=== PATIENT | female | born 1990 | race Caucasian/White ===

== ENCOUNTER → 2022-03-27 06:59 | Outpatient (CLI) | payer BC, SELFPAY ==
[2022-03-26 18:17] LABS: Basophils # 0.1 K/mm3 (0-0.2); Basophils % 0.7 % (0.1-2.0); Eosinophils # 0.2 K/mm3 (0.0-0.4); Eosinophils % 2.7 % (0.1-12.0); Hematocrit 43.6 % (37.0-47.0); Hemoglobin 14.7 g/dL (12.2-16.2); Lymphocytes # 1.8 K/mm3 (0.7-4.5); Lymphocytes % 28.2 % (10-50); Mean Corpuscular HGB Conc 33.8 g/dL (31.8-35.4); Mean Corpuscular Hemoglobin 30.5 pg (27.0-31.2); Mean Corpuscular Volume 90.3 fl (81-99); Mean Platelet Volume 11.3 fl (7.4-10.4); Monocytes # 0.4 K/mm3 (0.1-1.0); Monocytes % 5.9 % (1.7-9.3); Neutrophils # 3.9 K/mm3 (1.8-7.8); Neutrophils % 62.6 % (37.0-80.0); Platelet Count 241 K/mm3 (142-424); Red Blood Count 4.83 M/mm3 (4.20-5.40); Red Cell Distribution Width 13.1 % (11.5-17.5); White Blood Count 6.3 K/mm3 (4.8-10.8)
[2022-03-26 18:25] LABS: Alanine Aminotransferase 16 U/L (12-78); Albumin Level 4.7 g/dl (3.5-5.0); Albumin/Globulin Ratio 1.6 (1.1-1.8); Alkaline Phosphatase 68 U/L (38-126); Anion Gap 12.8 mEq/L (5-15); Aspartate Amino Transferase 23 U/L (14-36); Bilirubin,Total 0.4 mg/dl (0.2-1.3); Blood Urea Nitrogen 12 mg/dl (7-17); Calcium 9.8 mg/dl (8.4-10.2); Carbon Dioxide 29 mmol/L (22.0-30.0); Chloride 101 mmol/L (98-107); Estimated Glomerular Filt Rate 84 ml/min (>60); GFR (African American) 101 ML/MIN (>60); Glucose 91 mg/dl (74-100); Potassium 4.8 mmoL/L (3.5-5.1); Sodium 138 mmol/L (136-145); Total Protein,Serum 7.7 g/dl (6.3-8.2)
[2022-03-26 18:38] LABS: 25-OH Vitamin D, Total 40.2 ng/mL (30-100)
[2022-03-26 18:54] LABS: Thyroid Stimulating Hormone 1.65 uIU/mL (0.465-4.68)
[2022-03-26 19:13] LABS: Vitamin B12 401 pg/mL (239-931)
== END ==
PROVIDERS: PCP Nurse Practitioner; Visit Provider Nurse Practitioner
DX: F41.9 Anxiety disorder, unspecified (principal)
CPT/HCPCS: 80053; 82306; 82607; 84443; 85025

== ENCOUNTER → 2022-09-25 12:00 | Outpatient (CLI) | payer BC, SELFPAY ==
[2022-09-25 14:14] LABS: Influenza A, PCR Not Detected (NotDetected); Influenza B, PCR Not Detected (NotDetected)
[2022-09-25 14:52] LABS: Coronavirus 19, PCR Detected (NotDetected)
[2022-09-25 14:58] LABS: Chloride 100 mmol/L (98-107); Potassium 4.1 mmoL/L (3.5-5.1); Sodium 136 mmol/L (136-145)
[2022-09-25 15:01] LABS: Anion Gap 14.1 mEq/L (5-15); Blood Urea Nitrogen 11 mg/dl (7-17); Carbon Dioxide 26 mmol/L (22.0-30.0); Estimated Glomerular Filt Rate 84 ml/min (>60); GFR (African American) 101 ML/MIN (>60); Glucose 84 mg/dl (74-100)
== END ==
PROVIDERS: PCP Nurse Practitioner; Visit Provider Nurse Practitioner
DX: U07.1 COVID-19 (principal); J06.9 Acute upper respiratory infection, unspecified; R05.9 Cough, unspecified
CPT/HCPCS: 36415; 80048; C9803; U0003; U0005

== ENCOUNTER 2025-03-10 13:00 | Outpatient (CLI) | payer BC, SELFPAY ==
[2025-03-10 18:51] LABS: Basophils # 0.1 K/mm3 (0-0.2); Basophils % 0.9 % (0.1-2.0); Eosinophils # 0.2 Kmm3 (0.0-0.4); Eosinophils % 2.7 % (0.1-12.0); Hematocrit 45.2 % (37.0-47.0); Hemoglobin 14.9 g/dL (12.2-16.2); Immature Granulocytes # 0.01 10^3uL; Immature Granulocytes % 0.2 %; Lymphocytes # 1.6 K/mm3 (0.7-4.5); Mean Corpuscular Hemoglobin 30.1 pg (27.0-31.2); Mean Corpuscular Volume 91.3 fl (81-99); Mean Platelet Volume 12.8 fl (7.4-10.4); Monocytes # 0.5 K/mm3 (0.1-1.0); Neutrophils # 3.3 K/mm3 (1.8-7.8); Neutrophils % 59.2 % (37.0-80.0); Nucleated Red Blood Cells # 0 10^3/uL; Nucleated Red Blood Cells % 0 %; Platelet Count 238 K/mm3 (142-424); Red Blood Count 4.95 M/mm3 (4.20-5.40); Red Cell Distribution Width 13.2 % (11.5-17.5); Red Cell Distribution Width-SD 43.8 fL; White Blood Count 5.6 K/mm3 (4.8-10.8)
[2025-03-10 19:18] LABS: Alanine Aminotransferase 15 U/L (12-78); Albumin/Globulin Ratio 1.9 (1.1-1.8); Alkaline Phosphatase 60 U/L (38-126); Anion Gap 14.4 mEq/L (5-15); Aspartate Amino Transferase 22 U/L (14-36); Bilirubin,Total 0.9 mg/dl (0.2-1.3); Blood Urea Nitrogen 13 mg/dl (7-17); Carbon Dioxide 30 mmol/L (22.0-30.0); Chloride 99 mmol/L (98-107); Estimated Glomerular Filt Rate 72 ml/min (>60); GFR (African American) 87 ML/MIN (>60); Globulin 2.7 g/dL (1.3-3.2); Glucose 91 mg/dl (74-100); Potassium 4.4 mmoL/L (3.5-5.1); Sodium 139 mmol/L (136-145); Total Protein,Serum 7.7 g/dl (6.3-8.2)
[2025-03-10 19:28] LABS: Free Thyroxine Index 3.1 ug/dL (5.93-13.13); T4 (Thyroxine) 8.3 ug/dl (5.53-11.0); Triiodothryronine (T3) Uptake 37 % (23.5-40.5)
[2025-03-10 19:42] LABS: Thyroid Stimulating Hormone 1.91 uIU/mL (0.465-4.68)
[2025-03-10 19:56] LABS: Hemoglobin A1C 5.9 % (4.0-6.0)
--- OUTSIDE RECORDS SUMMARY | 2025-03-11 12:29 | XMS_ITS | Referral Summary ---
Author Organization [facility] Address [address] [place] [address] [place] [address] Care Team Providers Care Banquet Steward Name Role Phone Elena Livingston NP Primary Care Provider [phone] Social History Tobacco Use Types Packs/Day Years Used Date Smoking Tobacco: Never Assessed Comments Unknown Sex and Gender Information Value Date Recorded Sex Assigned at Not on file Legal Sex Female 2:04 PM EST Gender Identity Not on file Sexual Orientation Not on file Plan of Treatment Not on file Insurance [employer] BLUE CROSS ALL OTHERS NOT MEDICARE Care Teams Banquet Steward Relationship Specialty Start Date End Date Elena Livingston NP [address] [place] [address] PCP - General 10/22/24
--- OUTSIDE RECORDS SUMMARY | 2025-03-11 12:29 | XMS_ITS | Clinical Summary ---
Author Organization [facility] Address [place] [address] Phone Care Team Providers Care [place] Attorney Name Role Phone Unavailable Primary Care Provider Unavailabl e Allergies No known active allergies Medications predniSONE (DELTASONE) 20 mg Oral TabletIndicatio ns:Rhus dermatitis 3 tablets daily for 3 days, 2 tablets daily for 3 days, 1 tablet daily for 3 days and then 1/2 tablet daily for 3 days. 20 Tablet 05/11/2024 Active Active Problems Problem Noted Date Diagnosed Date At high risk for breast cancer 04/17/2024 Overview (04/17/2024): Ms. Mckeon has been calculated to have a 22% lifetime risk to develop breast cancer based on self-reported personal and family history (Tyrer Cuzick risk model). Women with a risk assessment 20%+ meet NCCN criteria for increased breast cancer screening. She was encouraged to establish care in a high risk setting such as [facility]. A referral has been placed. A consultation can be arranged by calling [phone]. Pre-op evaluation 10/06/2020 Neck mass 09/29/2020 Overview (09/29/2020): Added automatically from request for surgery [id number] Leg lesion 09/29/2020 Overview (09/29/2020): Added automatically from request for surgery [id number] Immunizations Immunization Administration Dates Next Due DTaP 02/28/2018 MMR 04/28/2016 Tdap 02/21/2018,04/05/2016 Surgical History Surgery Date Site/Laterality Comments APPENDECTOMY TONSILLECTOMY DILATION AND CURETTAGE OF UTERUS 01/10/2015 N/A DILATION & CURETTAGE SUCTION EVACUATION FOR MISCARRIAGE; Surgeon: Mary Loya MD; Location: ED MAIN OR; Service: Gynecology DENTAL SURGERY wisdom teeth extraction LASIK Bilateral SOFT TISSUE BIOPSY 10/06/2020 N/A .; Surgeon: Char Hampton MD; Location: ED MAIN OR; Service: General Medical History Medical History Date Comments Urinary tract infection Post-operative nausea and vomiting Motion sickness Family History Medical History Relation Name Comments Arthritis Father Cancer Maternal Aunt Early Maternal Grandfather car acc ident Arthritis Maternal Grandmother Cancer Mother breast, skin & colon Mental Illness Paternal Grandfather Cataracts Paternal Grandmother Vision Loss Paternal Grandmother Asthma Sister Relation Name Status Comments Father Alive Maternal Aunt Maternal Grandfather Maternal Grandmother Alive Mother Alive Paternal Grandfather Paternal Grandmother Alive Sister Alive Social History Tobacco Use Types Packs/Day Years Used Date Smoking Tobacco: Never Smokeless Tobacco: Never Tobacco Cessation:Counseling Given: Not Answered Alcohol Use Standard Drinks/Week Comments Yes 0 (1 standard drink = 0.6 oz pur e alcohol) Sexually Active Control Partners Comments Yes Other-see comments Male - vasectomy Comments No Sex and Gender Information Value Date Recorded Sex Assigned at Not on file Legal Sex Female 10:54 PM EDT Gender Identity Not on file Sexual Orientation Not on file Obstetrics History Para Term AB IAB SAB Ectopic Multiple Livin g Live Births 3 2 2 1 0 2 2 Date Outcome GA Total Labor Labor/2nd/3rd Weight Sex Type Anes PTL Narda A1 A5 Name Clin 2014 AB 8w0 d 2015 Term 40w 4d 0h 02m 0h 02m 8 lb 12 oz (3.97 kg) F Vag-S pont Epidur al N Livin g 8 9 Arun Lopez MD Delivery Location:[facility] 2017 Term 39w 3d 0h 03m 0h 03m 7 lb 15 oz (3.6 kg) F Vag-S pont Epidur al N Livin g 8 9 APPLEG ATE,AR YN BABY Bilot ta, Arun Iverson MD Delivery Location:[facility] Last Filed Vital Signs Vital Sign Reading Time Taken Comments Blood Pressure 112/72 05/10/2024 1:32 PM EDT Pulse 92 05/10/2024 1:32 PM EDT Temperature 37.5 C (99.5 F) 05/10/2024 1:32 PM EDT Respiratory Rate 18 05/10/2024 1:32 PM EDT Oxygen Saturation 100% 05/10/2024 1:32 PM EDT Inhaled Oxygen Concentration - - Weight 61.4 kg (135 lb 6.4 oz) 05/10/2024 1:32 P M EDT Height 160 cm (5' 3 ) 05/10/2024 1:32 PM EDT Body Mass Index 23.99 05/10/2024 1:32 PM EDT Plan of Treatment Upcoming Encounters Date Type Department Care Team (Late st Contact Info) Description 05/10/2025 9:00 AM EDT Office Visit [facility] [address] [facility] [address] [place] [id number] Karl Sargent MD [address] [place] [address] Health Maintenance Due Date Last Done Comments Annual Wellness Exam 1994 Hepatitis B Vaccine (1 of 3 - 19+ 3-dose series) 2010 COVID-19 Vaccine ( season) 2024 Influenza Vaccine (Season Ended) 2025 Pap Smear 03/09/2027 03/09/2024, 05/18, 12/29/2014, Additional history exists DTaP/TDaP/Td (4 - Td or Tdap) 02/29/2028 02/28/2018, 02/21/2018, 04/05/2016 Cervical Cancer Screening 03/09/2029 HPV/Pap Cotest 03/09/2029 03/09/2024 Meningococcal B Vaccine Aged Out No l onger eligible based on patient's age to complete this topic Pneumococcal Vaccine 0-49 Aged Out No longer eligible based on patient's age to complete this topic Procedures Procedure Name Priority Date/Time Associated Diagnosis Comments TELECOMMUNICATION TOWER TECHNICIAN CYTOLOGY REQUEST (PAP ONLY) Routine 03/09/2024 9:09 AM EDT Well woman exam with routine gynecological exam Screening for cervical cancer Screening for HPV (human papillomavirus) from Last 3 Months or Most Recently Relevant to Health Maintenance Results * TELECOMMUNICATION TOWER TECHNICIAN CYTOLOGY REQUEST (PAP ONLY) (03/09/2024 9:09 AM EDT) CASE REPORT Gynecologic Cytology Report Case: [id number] Authorizing Provider: Mary Loya MD Collected: 03/09/2024 0909 Ordering Location: [facility] Edg Received: 03/09/2024 0909 First Screen: Michelle Raines CT Specimen: LIQUID-BASED PAP - CERVICAL/ENDOCERV ICAL, Cervix, Endocervical 03/12/2024 2:12 PM EDT [facility] PAP FINAL DIAGNOSIS Negative for intraepithelial lesion or malignancy 03/12/2024 2:12 PM EDT [facility] at 1412 EDT MICROSCOPIC DESCRIPTION Microscopic examination is performed and the findings corroborate the diagnosis. 03/12/2024 2:12 PM EDT [facility] PAP SMEAR ADEQUACY Satisfactory for evaluation 03/12/2024 2:12 PM EDT [facility] ENDOCERVICAL T-ZONE Transformation zone present 03/12/2024 2:12 PM EDT [facility] EMBEDDED IMAGES 2:12 PM EDT [facility] PAP DISCLAIMER The Pap Smear is a screening test that aids in the detection of cervical cancer and cancer precursors. Both false positive and false negative results can occur. The test should be used at regular intervals, and positive results should be confirmed before definitive therapy. Processed using the ThinPrep Plastic Injection Mold Maker Automated cytology screening device (Nerveda). 03/12/2024 2:12 PM EDT [facility] Thin Prep ENDOCERVICAL STRUCTURE / Unknown 03/09/2024 9:09 AM EDT 03/09/2024 9:09 AM EDT us Mary Loya MD CYTOLOGY ORDERABLES Fin al Result [place] [address] from Last 3 Months or Most Recently Relevant to Health Maintenance Insurance ANTHEM PPO ANTHEM PPO ANTHEM PPO Advance Directives For more information, please contact: [phone] * Full Code (Latest Code Status on File) Date Activated Date Inactivated Comments 05/08/2018 8:34 AM 05/09/2018 10:55 PM * Full Code Date Activated Date Inactivated Comments 04/26/2016 8:26 PM 04/29/2016 5:23 PM
--- OUTSIDE RECORDS SUMMARY | 2025-03-11 12:29 | XMS_ITS | Encounter Summary ---
Author Organization [facility] [address] Care Team Providers Care Certifed Refrigeration Operator Name Role Phone Unavailable Primary Care Provider Unavailabl e Encounter Details Date Type Department Care Team (Latest Contact Info) Description 04/11/2018 Lab Requisition [facility] [place] [address] Tomy Blanton MD [address] [place] [address] [address] [place] [address] Carrier of group B Streptococcus Social History Tobacco Use Types Packs/Day Years Used Date Smoking Tobacco: Never Smokeless Tobacco: Never Alcohol Use Standard Drinks/Week Comments No 0 (1 standard drink = 0.6 oz pur e alcohol) quit with Comments Yes Sex and Gender Information Value Date Recorded Sex Assigned at Not on file Legal Sex Female 10:54 PM EDT Gender Identity Not on file Sexual Orientation Not on file documented as of this encounter Functional Status * Is the person deaf or does he/she have serious difficulty hearing? Answer Date of Assessment Author No 03/28/2018 11:36 PM Sa ra Chana Barrett RN * Is the person blind or does he/she have serious difficulty seeing even when wearing glasses? Answer Date of Assessment Author No 03/28/2018 11:36 PM Sa ra Chana Barrett RN * Does this person have serious difficulty walking or climbing stairs? Answer Date of Assessment Author No 03/28/2018 11:36 PM Sa ra Chana Barrett RN * Does this person have difficulty dressing or bathing? Answer Date of Assessment Author No 03/28/2018 11:36 PM EDT Sa ra Chana Mars RN * Because of a physical, mental or emotional condition, does this person have difficulty doing errands alone such as visiting a doctor's office or shopping? Answer Date of Assessment Author No 03/28/2018 11:36 PM EDT Sa ra Chana Mars RN documented as of this encounter Mental Status * Because of a physical, mental or emotional condition, does this person have serious difficulty concentrating, remembering or making decisions? Answer Entry Date Author No 03/28/2018 11:36 PM EDT Sa ra Chana Mars RN documented in this encounter Plan of Treatment Upcoming Encounters Date Type Department Care Team (Late st Contact Info) Description 05/10/2025 9:00 AM EDT Office Visit [facility] [address] [facility] [address] [place] [address] Karl Sargent MD [address] [place] [address] documented as of this encounter Procedures Procedure Name Priority Date/Time Associated Diagnosis Comments STREP B DNA Routine 04/11/2018 8:30 AM EDT Carrier of group B Streptococcus documented in this encounter Results * STREP B DNA (04/11/2018 8:30 AM EDT) Strep B DNA Not Detected Not Detected 8 8:05 AM EDT [facility] [employer] Swab RECTUM AND VAGINA, CS / Unknown 04/11/2018 8:30 AM EDT 04/11/2018 4:21 PM EDT Narrative [facility] [employer] - 04/13/2018 8:05 AM EDT TEST INFORMATION: This qualitative assay utilizes molecular amplification to detect a portion of the Streptococcus agalactiae genome and is intended for a screen of antepartum women in 35-37 weeks gestation. A negative result does not rule out the presence the Group B Strep in concentrations below the limit of detection for the assay. us Tomy Blanton MD MICROBIOLOGY - GENERAL ORDERAB LES Final Result [facility] [address] [place] [address] , [place] [address] documented in this encounter Visit Diagnoses Diagnosis Carrier of group B Streptococcus Carrier or suspected carrier of Group B streptococcus documented in this encounter
--- OUTSIDE RECORDS SUMMARY | 2025-03-11 12:29 | XMS_ITS | Clinical Summary ---
Author Organization [facility] Address [address] [place] [address] [place] [address] Care Team Providers Care Lottery Office Manager Name Role Phone Elena Livingston NP Primary Care Provider [phone] Social History Tobacco Use Types Packs/Day Years Used Date Smoking Tobacco: Never Assessed Comments Unknown Sex and Gender Information Value Date Recorded Sex Assigned at Not on file Legal Sex Female 2:04 PM EST Gender Identity Not on file Sexual Orientation Not on file Plan of Treatment Health Maintenance Due Date Last Done Comments Pap Screening 01/23/2012 Influenza Vaccine (Season Ended) 2025 DTap,Tdap,and Td (4 - Td or Tdap) 02/29/2028 02/28/2018, 02/21/2018, 04/05/2016 RSV Vaccine (60+ or ) (1 - 1-dose 75+ series) 2066 HPV Aged Out No longer eligi ble based on patient's age to complete this topic Meningococcal conjugate lilly nt 4 (MCV4) Aged Out No longer eligible b ased on patient's age to complete this topic Pneumococcal 0-49 Aged Out No longer eligible based on patient's age to complete this topic RSV Immunization (<20 months) Aged Out No longer eligible based on patient's age to complete this topic Insurance JOHANNA DIANA CROSS ALL OTHERS NOT MEDICARE Care Teams Lottery Office Manager Relationship Specialty Start Date End Date Elena Livingston NP [address] [place] [address] PCP - General 10/22/24
[2025-03-16 19:10] LABS: 1,25 Dihydroxy Vitamin D 53 pg/mL (.); 1,25-Dihydroxy, Vitamin D-2 <10 pg/mL (.); 1,25-Dihydroxy, Vitamin D-3 53 pg/mL (.)
== END 2025-03-10 23:59 | disposition home or self-care (01) ==
LOC: LAB.DROPOF 03-11 12:27
PROVIDERS: PCP Nurse Practitioner Family; Visit Provider Nurse Practitioner Family
DX: R53.83 Other fatigue (principal)
CPT/HCPCS: 80053; 82652; 83036; 84436; 84443; 84479; 85025